=== PATIENT | female | born 1950 | race Caucasian/White ===

== ENCOUNTER 2019-08-28 08:21 | Emergency (ER) | payer MEDICARE, BC ==
[~2019-08-28] VITALS: Ht 157.5 cm; Wt 76.4 kg
[2019-08-28] MEDS: ondansetron/PF 4mg/2ml inj IV ONE (09:40)
[2019-08-28] MEDS: morphine 4 MG/ML inj SYRINge IV ONE ×2 (09:44→10:46)
[2019-08-28] MEDS: LORazepam 2 mg/ml vial IV ONE (09:47)
[2019-08-28] MEDS: orphenadrine citrate 60mg/2ml inj. IM ONE (09:48)
[2019-08-28 10:47] LABS: BASOPHILS # (AUTO) 0.1 X10'3 (0-0.2); BASOPHILS % (AUTO) 0.6 % (0-1); EOSINOPHILS % (AUTO) 0.1 % (0-6); HEMATOCRIT 41.9 % (35.0-45.0); HEMOGLOBIN 14.1 g/dl (12.0-16.0); LYMPHOCYTES # (AUTO) 1.1 X10'3 (1.1-4.8); LYMPHOCYTES % (AUTO) 8.4 % (21-51); MEAN CORPUSCULAR HEMOGLOBIN 28.8 PG (27.0-31.0); MEAN CORPUSCULAR HGB CONC 33.7 g/dL (33.0-36.5); MEAN CORPUSCULAR VOLUME 85.3 FL (78-98); MEAN PLATELET VOLUME 7.7 FL (7.4-10.4); MONOCYTES # (AUTO) 0.6 X10'3 (0-0.9); MONOCYTES % (AUTO) 4.6 % (2-12); NEUTROPHILS % (AUTO) 86.3 % (42-75); PLATELET COUNT 352 X10'3 (140-440); RED BLOOD COUNT 4.91 X10'6 (4.20-5.60); WHITE BLOOD COUNT 12.7 X10'3 (4.5-11.0)
[2019-08-28 11:02] LABS: ALANINE AMINOTRANSFERASE 72 U/L (12-78); ALBUMIN 3.5 G/DL (3.4-5.0); ALBUMIN/GLOBULIN RATIO 0.7 (1.1-1.5); ALKALINE PHOSPHATASE 190 IU/L (46-116); ANION GAP 14 (8-16); ASPARTATE AMINO TRANSFERASE 49 U/L (10-37); BILIRUBIN,TOTAL 0.2 MG/DL (0.1-1.0); BLOOD UREA NITROGEN 28 MG/DL (7-18); BUN/CREATININE RATIO 29.2 (6.6-38.0); CALCIUM 9.6 MG/DL (8.5-10.1); CHLORIDE 98 MMOL/L (99-107); CREATININE 0.96 MG/DL (0.40-0.90); GLUCOSE 190 MG/DL (70-104); POTASSIUM 3.9 MMOL/L (3.5-5.1); SODIUM 132 MMOL/L (135-145); TOTAL CARBON DIOXIDE 20.1 MMOL/L (24-32); TOTAL PROTEIN 8.2 G/DL (6.4-8.2); eGFR 58 ML/MIN
[2019-08-28 11:23] LABS: CLARITY,URINE SLIGHTLY CLOUDY (Clear); COLOR,URINE STRAW (Yellow); GLUCOSE, URINE NEGATIVE (Neg); KETONES,URINE NEGATIVE (Neg); NITRITES, URINE NEGATIVE (Neg); OCCULT BLOOD,URINE NEGATIVE (Neg); PROTEIN,URINE NEGATIVE (Neg); UROBILINOGEN,URINE 0.2 E.U/dL (0.2-1.0)
[2019-08-28 11:24] LABS: LEUKOCYTE ESTERASE ,URINE TRACE (Neg)
[2019-08-28 11:25] LABS: UA COLLECTION TYPE STRAIGHT CATH
[2019-08-28 11:30] LABS: SQUAMOUS EPITHELIAL CELL,UR MODERATE /LPF (FEW)
--- NOTE | 2019-08-28 11:30 | NUR ---
PT. TO CT VIA W/C WITH FRONT [employer] OFFICER
[2019-08-28 11:31] LABS: BACTERIA,URINE 1+ /HPF (Neg); RBC,URINE 0-2 /HPF (0-2); TRANSITIONAL EPI CELLS,URINE FEW /HPF; WBC,URINE 0-4 /HPF (0-4)
[2019-08-28] MEDS: HYDROmorphone 1 mg/ml syringe IV ONE ×2 (11:54→15:09)
--- NOTE | 2019-08-28 12:26 | NUR ---
PT. BACK FROM CT VIA W/C
[2019-08-28] MEDS: normal saline 1000ml 1,000 ML IV ONE (12:33)
[2019-08-28] MEDS: dexamethasone sod phosphate 10mg/ml inj IV STA (12:33)
--- NOTE | 2019-08-28 12:44 | NUR ---
VOIDED 2 HRS AGO
[2019-08-28] MEDS ORDERED: iohexol 300mg/ml 100ml inj. ONE (12:49)
[2019-08-28] MEDS ORDERED: morphine 5 MG/ML injection IV PRN (13:20)
[2019-08-28] MEDS ORDERED: morphine 2 MG/ML inj. syringe IV PRN (13:23)
[2019-08-28] MEDS: morphine 10mg/ml inj. IV PRN (14:11)
[2019-08-28] MEDS: nicotine 21mg patch - 24 hr TD ONE (15:15)
[2019-08-28 15:41] VITALS: BP 185/92
== END 2019-08-28 15:43 | disposition short-term general hospital (02) ==
LOC: ER 08:22
DX: G83.4 Cauda equina syndrome (principal); G89.29 Other chronic pain; Z85.3 Personal history of malignant neoplasm of breast
CPT/HCPCS: 36415; 71260; 72148; 74177; 80053; 81001; 85025; 87088; 96374; 96375; 96376; 99291; 99292; J1100; J1170; J2060; J2270; J2360; J2405; J7030; Q9967